=== PATIENT | female | born 1950 | race Caucasian/White ===

== ENCOUNTER → 2016-05-15 | Outpatient (CLI) | payer MEDICARE, OTHER ==
[~2016-05-15] MED LIST: REGADENOSON 0.4 MG/5 ML SYRINGE ONE
== END | disposition home or self-care (01) ==
LOC: CFH 07:29
PROVIDERS: ATTEND Internal Medicine Cardiovascular Disease
DX: Z01.810 Encounter for preprocedural cardiovascular examination (principal); R06.02 Shortness of breath; I10 Essential (primary) hypertension; E11.9 Type 2 diabetes mellitus without complications
CPT/HCPCS: 78452; 93017; 93306; A9502; J2785

== ENCOUNTER 2016-07-15 15:13 | Emergency (ER) | payer MEDICARE, OTHER ==
[~2016-07-15] VITALS: Ht 160 cm; Wt 110.0 kg
[2016-07-15] MEDS ORDERED: LINA1TAB PO (16:04)
[2016-07-15] MEDS ORDERED: METO50TA82 PO (16:04)
[2016-07-15] MEDS ORDERED: SERT100T5 PO (16:04)
[2016-07-15] MEDS ORDERED: GLIM1TAB2 PO (16:04)
[2016-07-15] MEDS ORDERED: ATOR20TA PO (16:04)
[2016-07-15] MEDS ORDERED: SPIR25TA3 PO (16:04)
[2016-07-15] MEDS ORDERED: LISI5TAB7 PO (16:04)
[2016-07-15] MEDS ORDERED: PILO5TAB PO (16:04)
[2016-07-15 16:49] LABS: ASPARTATE AMINO TRANSFERASE 16 U/L (15-37); BLOOD UREA NITROGEN 14 mg/dL (7-18)
[2016-07-15 17:31] VITALS: BP 109/59
== END 2016-07-15 17:34 | disposition home or self-care (01) ==
LOC: ED 17:25
DX: I80.8 Phlebitis and thrombophlebitis of other sites (principal); I10 Essential (primary) hypertension; E11.9 Type 2 diabetes mellitus without complications; E66.9 Obesity, unspecified
CPT/HCPCS: 36415; 80053; 85025; 85610; 85730

== ENCOUNTER 2016-10-27 14:49 | Inpatient (IN) | payer MEDICARE ==
[~2016-10-27] VITALS: Ht 160 cm; Wt 109.2 kg
[~2016-10-27 14:49] MED LIST changes: +ATOR20TA PO; +GLIM1TAB2 PO; +LINA1TAB PO; +LISI5TAB7 PO; +METO50TA82 PO; +PILO5TAB PO; -REGADENOSON 0.4 MG/5 ML SYRINGE ONE; +SERT100T5 PO; +SPIR25TA3 PO
[2016-10-27 15:26] LABS: HEMATOCRIT 43.9 % (34.6-47.8); HEMOGLOBIN 14.1 g/dL (11.7-16.4); WHITE BLOOD COUNT 11.6 x10^3/uL (3.4-10)
[2016-10-27] MEDS ORDERED: ONDANSETRON 2MG/ML, 2ML ONE (15:26)
[2016-10-27] MEDS ORDERED: FENTANYL PF 100 MCG/2ML ONE (15:26)
[2016-10-27] MEDS ORDERED: FENTANYL PF 100 MCG/2ML IVPush PRN (15:30)
[2016-10-27] MEDS ORDERED: SODIUM CHLORIDE 0.9% 1,000ML IVBOLUS ONE (15:30)
[2016-10-27] MEDS ORDERED: ONDANSETRON 2MG/ML, 2ML IVPush ONE (15:30)
[2016-10-27] MEDS ORDERED: SODIUM CHLORIDE FLUSH 10ML SYR IVF ONE (15:30)
[2016-10-27 15:38] LABS: ASPARTATE AMINO TRANSFERASE 19 U/L (15-37); BLOOD UREA NITROGEN 17 mg/dL (7-18)
[2016-10-27] MEDS ORDERED: TRAZ50TA18 PO (15:43)
[2016-10-27 15:46] LABS: IS PT STATUS REG ER OR PRE ER? YES
[2016-10-27] MEDS ORDERED: OMNIPAQUE 350 MG/ML, 100ML BOTTLE ONE (16:10)
[2016-10-27] MEDS ORDERED: HEPARIN 25,000 UNITS/500ML PMX 500 ML IV PRN (16:30)
[2016-10-27] MEDS ORDERED: HEPARIN 5,000 UNITS/ML, 1ML IV ONE (16:30)
[2016-10-27] MEDS ORDERED: HEPARIN 5,000 UNITS/ML, 1ML IV PRN (16:30)
[2016-10-27] MEDS ORDERED: HEPARIN 5,000 UNITS/ML, 1ML ONE (16:54)
[2016-10-27] MEDS ORDERED: HEPARIN 25,000 UNITS/500ML PMX 500 ML ONE (16:54)
[2016-10-27] MEDS ORDERED: LORazepam 2 MG/ML, 1ML IVPush PRN (17:00)
[2016-10-27] MEDS ORDERED: POLYETHYLENE GLYCOL 17 GM PACKET PO PRN (17:00)
[2016-10-27 17:26] LABS: ABG COLLECTION SITE RIGHT BRACHIAL
[2016-10-27 19:26] VITALS: BP 93/64
[2016-10-27] MEDS: SODIUM CHLORIDE 0.9% 1,000 ML IV SCH ×2 (19:42→23:58)
[2016-10-27 20:36] LABS: IS PT STATUS REG ER OR PRE ER? NO
[2016-10-27] MEDS ORDERED: TEMPLATE NON-FORMULARY MED. (Pilocarpine Hcl** 5 MG) PO SCH (21:00)
[2016-10-27] MEDS: morphine SULFATE 10 MG/ML, 1ML IVPush PRN (21:07)
[2016-10-27] MEDS: TRAZODONE 50MG TABLET PO SCH (21:14)
[2016-10-27] MEDS: INSULIN ASPART 100 UNITS/ML, PEN SQ-INSULIN SCH (21:15)
[2016-10-28 04:00] VITALS: BP 103/53
[2016-10-28] MEDS: INSULIN ASPART 100 UNITS/ML, PEN SQ-INSULIN SCH ×4 (08:15→22:01)
[2016-10-28 08:16] LABS: ASPARTATE AMINO TRANSFERASE 20 U/L (15-37); BLOOD UREA NITROGEN 20 mg/dL (7-18); HEMATOCRIT 41.1 % (34.6-47.8); HEMOGLOBIN 12.9 g/dL (11.7-16.4); WHITE BLOOD COUNT 11.3 x10^3/uL (3.4-10)
[2016-10-28] MEDS: morphine SULFATE 10 MG/ML, 1ML IVPush PRN ×2 (09:33→19:39)
[2016-10-28 09:40] LABS: IS PT STATUS REG ER OR PRE ER? NO
[2016-10-28] MEDS ORDERED: DIPH25CA61 PO (10:14)
[2016-10-28] MEDS ORDERED: GLIM4TAB2 PO (10:19)
[2016-10-28] MEDS ORDERED: CHOL100012 PO (10:24)
[2016-10-28] MEDS ORDERED: CYAN1TAB29 PO (10:24)
[2016-10-28] MEDS ORDERED: ASCO500T8 PO (10:24)
[2016-10-28] MEDS ORDERED: ASPI-496 PO (10:24)
[2016-10-28] MEDS ORDERED: OMEG-120 PO (10:24)
[2016-10-28] MEDS: ATORVASTATIN 20 MG TABLET PO SCH (10:43)
[2016-10-28] MEDS: SERTRALINE 100MG TABLET PO SCH (10:43)
[2016-10-28] MEDS: SENNA/DOCUSATE TABLET PO SCH (10:43)
[2016-10-28] MEDS: PILOCARPINE HCL 5 MG PO SCH ×3 (10:44→22:02)
[2016-10-28] MEDS ORDERED: HEPARIN 5,000 UNITS/ML, 1ML IV PRN (11:02)
[2016-10-28] MEDS ORDERED: HEPARIN 25,000 UNITS/500ML PMX 500 ML IV PRN (11:30)
[2016-10-28] MEDS: OXYcodone IR 5MG TABLET PO PRN ×3 (12:16→21:57)
[2016-10-28] MEDS: SODIUM CHLORIDE 0.9% 1,000 ML IV SCH (17:39)
[2016-10-28] MEDS: TRAZODONE 50MG TABLET PO SCH (20:38)
[2016-10-28] MEDS: APIXABAN 5 MG TABLET PO SCH (20:38)
[2016-10-29] MEDS: OXYcodone IR 5MG TABLET PO PRN ×3 (02:59→14:55)
[2016-10-29] MEDS: SODIUM CHLORIDE 0.9% 1,000 ML IV SCH ×2 (03:02→14:56)
[2016-10-29 04:00] VITALS: BP 95/55
[2016-10-29] MEDS: morphine SULFATE 10 MG/ML, 1ML IVPush PRN ×2 (04:32→21:50)
[2016-10-29 04:38] LABS: HEMATOCRIT 38.9 % (34.6-47.8); HEMOGLOBIN 12.2 g/dL (11.7-16.4); WHITE BLOOD COUNT 13.1 x10^3/uL (3.4-10)
[2016-10-29 04:50] LABS: BLOOD UREA NITROGEN 23 mg/dL (7-18)
[2016-10-29 04:53] LABS: ASPARTATE AMINO TRANSFERASE 21 U/L (15-37)
[2016-10-29] MEDS: APIXABAN 5 MG TABLET PO SCH ×2 (08:18→21:49)
[2016-10-29] MEDS: PILOCARPINE HCL 5 MG PO SCH ×2 (08:19→21:51)
[2016-10-29] MEDS: SENNA/DOCUSATE TABLET PO SCH (08:19)
[2016-10-29] MEDS: SERTRALINE 100MG TABLET PO SCH (08:19)
[2016-10-29] MEDS: INSULIN ASPART 100 UNITS/ML, PEN SQ-INSULIN SCH ×4 (08:19→21:48)
[2016-10-29] MEDS: ATORVASTATIN 20 MG TABLET PO SCH (08:19)
[2016-10-29] MEDS ORDERED: CALCIUM CARBONATE 500 MG TAB.CHEW PO PRN (10:30)
[2016-10-29] MEDS: FAMOTIDINE 20 MG/2 ML IVPush SCH ×2 (14:55→21:49)
[2016-10-29] MEDS: ONDANSETRON 2MG/ML, 2ML IVPush PRN (20:11)
[2016-10-29] MEDS: TRAZODONE 50MG TABLET PO SCH (21:49)
[2016-10-30] MEDS: SODIUM CHLORIDE 0.9% 1,000 ML IV SCH ×3 (00:55→21:13)
[2016-10-30] MEDS: ACETAMINOPHEN 325 MG TABLET PO PRN (02:12)
[2016-10-30 04:25] VITALS: BP 116/60
[2016-10-30 04:39] LABS: HEMATOCRIT 36.7 % (34.6-47.8); HEMOGLOBIN 11.6 g/dL (11.7-16.4); WHITE BLOOD COUNT 10.1 x10^3/uL (3.4-10)
[2016-10-30 04:49] LABS: ASPARTATE AMINO TRANSFERASE 17 U/L (15-37); BLOOD UREA NITROGEN 19 mg/dL (7-18)
[2016-10-30] MEDS: INSULIN ASPART 100 UNITS/ML, PEN SQ-INSULIN SCH ×4 (06:23→21:12)
[2016-10-30] MEDS: OXYcodone IR 5MG TABLET PO PRN ×2 (06:23→21:06)
[2016-10-30] MEDS: FAMOTIDINE 20 MG/2 ML IVPush SCH ×2 (08:44→21:04)
[2016-10-30] MEDS: SENNA/DOCUSATE TABLET PO SCH (08:44)
[2016-10-30] MEDS: SERTRALINE 100MG TABLET PO SCH (08:44)
[2016-10-30] MEDS: APIXABAN 5 MG TABLET PO SCH ×2 (08:44→21:05)
[2016-10-30] MEDS: PILOCARPINE HCL 5 MG PO SCH ×2 (08:45→21:00)
[2016-10-30] MEDS: ATORVASTATIN 20 MG TABLET PO SCH (08:45)
[2016-10-30 10:04] LABS: ABG COLLECTION SITE RIGHT RADIAL; COLLATERAL CIRCULATION TESTING NORMAL; FIO2 98 %
[2016-10-30] MEDS: TRAZODONE 50MG TABLET PO SCH (21:05)
[2016-10-30] MEDS: ONDANSETRON 2MG/ML, 2ML IVPush PRN (21:05)
[2016-10-31] MEDS: ACETAMINOPHEN 325 MG TABLET PO PRN ×2 (01:59→13:38)
[2016-10-31] MEDS: SODIUM CHLORIDE 0.9% 1,000 ML IV SCH (07:00)
[2016-10-31] MEDS: OXYcodone IR 5MG TABLET PO PRN ×3 (08:20→21:18)
[2016-10-31] MEDS: SENNA/DOCUSATE TABLET PO SCH (08:20)
[2016-10-31] MEDS: APIXABAN 5 MG TABLET PO SCH ×2 (08:21→21:12)
[2016-10-31] MEDS: SERTRALINE 100MG TABLET PO SCH (08:21)
[2016-10-31] MEDS: PILOCARPINE HCL 5 MG PO SCH ×2 (08:21→21:00)
[2016-10-31] MEDS: FAMOTIDINE 20 MG/2 ML IVPush SCH ×2 (08:22→21:12)
[2016-10-31] MEDS: ATORVASTATIN 20 MG TABLET PO SCH (08:22)
[2016-10-31] MEDS: INSULIN ASPART 100 UNITS/ML, PEN SQ-INSULIN SCH ×4 (08:41→21:19)
[2016-10-31] MEDS ORDERED: FUROSEMIDE 40 MG/4 ML IV SCH (17:00)
[2016-10-31] MEDS ORDERED: FUROSEMIDE 40 MG/4 ML IV ONE (20:00)
[2016-10-31] MEDS: TRAZODONE 50MG TABLET PO SCH (21:10)
[2016-11-01 04:58] LABS: HEMATOCRIT 37.6 % (34.6-47.8); HEMOGLOBIN 12.1 g/dL (11.7-16.4); WHITE BLOOD COUNT 9.7 x10^3/uL (3.4-10)
[2016-11-01 05:09] LABS: BLOOD UREA NITROGEN 22 mg/dL (7-18)
[2016-11-01 05:13] LABS: ASPARTATE AMINO TRANSFERASE 14 U/L (15-37)
[2016-11-01] MEDS: INSULIN ASPART 100 UNITS/ML, PEN SQ-INSULIN SCH ×4 (08:30→21:32)
[2016-11-01] MEDS ORDERED: LACTULOSE 20 GM/30 ML UDC PO SCH (09:00)
[2016-11-01] MEDS: PILOCARPINE HCL 5 MG PO SCH ×2 (09:00→21:37)
[2016-11-01] MEDS: ATORVASTATIN 20 MG TABLET PO SCH (09:25)
[2016-11-01] MEDS: APIXABAN 5 MG TABLET PO SCH ×2 (09:25→21:31)
[2016-11-01] MEDS: FAMOTIDINE 20 MG/2 ML IVPush SCH ×2 (09:25→21:31)
[2016-11-01] MEDS: SERTRALINE 100MG TABLET PO SCH (09:25)
[2016-11-01] MEDS: SENNA/DOCUSATE TABLET PO SCH (09:25)
[2016-11-01] MEDS ORDERED: LACTULOSE 20 GM/30 ML UDC PO PRN ×2 (09:30→16:30)
[2016-11-01] MEDS ORDERED: FUROSEMIDE 40 MG/4 ML ONE (10:42)
[2016-11-01] MEDS ORDERED: FUROSEMIDE 40 MG/4 ML IV ONE ×3 (11:00→17:00)
[2016-11-01] MEDS ORDERED: LORazepam 2 MG/ML, 1ML IVPush PRN (16:30)
[2016-11-01] MEDS ORDERED: POLYETHYLENE GLYCOL 17 GM PACKET PO PRN (16:30)
[2016-11-01] MEDS ORDERED: ACETAMINOPHEN 325 MG TABLET PO PRN (16:30)
[2016-11-01] MEDS ORDERED: CALCIUM CARBONATE 500 MG TAB.CHEW PO PRN (16:30)
[2016-11-01] MEDS ORDERED: FUROSEMIDE 40 MG/4 ML IV SCH (17:00)
[2016-11-01] MEDS: TRAZODONE 50MG TABLET PO SCH (21:31)
[2016-11-02 04:32] VITALS: BP 121/86
[2016-11-02 05:57] LABS: HEMATOCRIT 38.6 % (34.6-47.8); HEMOGLOBIN 12.5 g/dL (11.7-16.4); WHITE BLOOD COUNT 8.2 x10^3/uL (3.4-10)
[2016-11-02 06:09] LABS: BLOOD UREA NITROGEN 19 mg/dL (7-18)
[2016-11-02] MEDS: INSULIN ASPART 100 UNITS/ML, PEN SQ-INSULIN SCH ×4 (06:41→20:30)
[2016-11-02] MEDS: POTASSIUM CHLORIDE 20 MEQ TAB.ER.PRT PO SCH ×2 (08:50→17:00)
[2016-11-02] MEDS: SERTRALINE 100MG TABLET PO SCH (08:51)
[2016-11-02] MEDS: SENNA/DOCUSATE TABLET PO SCH (08:51)
[2016-11-02] MEDS: FAMOTIDINE 20 MG/2 ML IVPush SCH ×2 (08:52→20:29)
[2016-11-02] MEDS: APIXABAN 5 MG TABLET PO SCH ×2 (08:52→20:29)
[2016-11-02] MEDS: ATORVASTATIN 20 MG TABLET PO SCH (08:53)
[2016-11-02] MEDS: PILOCARPINE HCL 5 MG PO SCH ×2 (08:53→21:00)
[2016-11-02 19:01] VITALS: BP 129/70
[2016-11-02] MEDS: TRAZODONE 50MG TABLET PO SCH (20:29)
[2016-11-03 01:21] VITALS: BP 124/79
[2016-11-03] MEDS: INSULIN ASPART 100 UNITS/ML, PEN SQ-INSULIN SCH ×4 (07:49→21:42)
[2016-11-03] MEDS: APIXABAN 5 MG TABLET PO SCH ×2 (07:51→21:23)
[2016-11-03] MEDS: PILOCARPINE HCL 5 MG PO SCH ×2 (07:51→21:23)
[2016-11-03] MEDS: ATORVASTATIN 20 MG TABLET PO SCH (07:51)
[2016-11-03] MEDS: SERTRALINE 100MG TABLET PO SCH (07:51)
[2016-11-03] MEDS: SENNA/DOCUSATE TABLET PO SCH (07:51)
[2016-11-03] MEDS: FAMOTIDINE 20 MG/2 ML IVPush SCH ×2 (07:51→21:23)
[2016-11-03 07:57] VITALS: BP 137/78
[2016-11-03 13:38] VITALS: BP 143/90
[2016-11-03 18:40] VITALS: BP 141/78
[2016-11-03] MEDS: TRAZODONE 50MG TABLET PO SCH (22:06)
[2016-11-04 02:04] VITALS: BP 133/78
[2016-11-04 05:13] LABS: BLOOD UREA NITROGEN 21 mg/dL (7-18)
[2016-11-04 06:30] VITALS: BP 115/77
[2016-11-04] MEDS: ATORVASTATIN 20 MG TABLET PO SCH (08:14)
[2016-11-04] MEDS: SERTRALINE 100MG TABLET PO SCH (08:14)
[2016-11-04] MEDS: INSULIN ASPART 100 UNITS/ML, PEN SQ-INSULIN SCH ×2 (08:14→11:00)
[2016-11-04] MEDS: FAMOTIDINE 20 MG/2 ML IVPush SCH (08:14)
[2016-11-04] MEDS: PILOCARPINE HCL 5 MG PO SCH (08:15)
[2016-11-04] MEDS: SENNA/DOCUSATE TABLET PO SCH (08:16)
[2016-11-04] MEDS: APIXABAN 5 MG TABLET PO SCH (08:21)
[2016-11-04] MEDS ORDERED: APIX5TAB PO (09:43)
[2016-11-04 10:28] VITALS: BP 120/70
== END 2016-11-04 12:01 | disposition home or self-care (01) | DRG 175 ==
LOC: ED 16:37 → CCU 16:42 → ED 18:22 → CCU 18:54 → 5SO 11-02 16:32 → 4NOR 11-03 18:09
PROVIDERS: ADMIT Internal Medicine; ATTEND Internal Medicine
PROC: 5A09357 Assistance with Respiratory Ventilation, Less than 24 Consecutive Hours, Continuous Positive Airway Pressure (ICD-10-PCS; principal; 2016-11-03)
DX: I26.92 Saddle embolus of pulmonary artery without acute cor pulmonale (principal); J96.20 Acute and chronic respiratory failure, unspecified whether with hypoxia or hypercapnia; N17.0 Acute kidney failure with tubular necrosis; E46 Unspecified protein-calorie malnutrition; D72.829 Elevated white blood cell count, unspecified; E11.9 Type 2 diabetes mellitus without complications; I10 Essential (primary) hypertension; Z68.41 Body mass index [BMI] 40.0-44.9, adult; I82.412 Acute embolism and thrombosis of left femoral vein; I82.439 Acute embolism and thrombosis of unspecified popliteal vein; R74.8 Abnormal levels of other serum enzymes; E66.01 Morbid (severe) obesity due to excess calories; E78.5 Hyperlipidemia, unspecified; F32.9 Major depressive disorder, single episode, unspecified; G47.33 Obstructive sleep apnea (adult) (pediatric); K59.00 Constipation, unspecified; Z82.49 Family history of ischemic heart disease and other diseases of the circulatory system; Z87.891 Personal history of nicotine dependence; Z99.81 Dependence on supplemental oxygen; I51.89 Other ill-defined heart diseases
CPT/HCPCS: 36415; 36600; 71010; 71275; 80048; 80053; 82803; 82962; 83735; 83880; 84132; 84484; 85025; 85520; 85610; 85730; 87081; 93005; 93306; 96374; 96375; J1644; J1815; J1940; J2405; J3010; Q9967; J2270; J7030; S0028

== ENCOUNTER → 2017-05-07 | Outpatient (CLI) | payer MEDICARE ==
[~2017-05-07] MED LIST changes: +APIX5TAB PO; +ASCO500T8 PO; +ASPI-496 PO; +CHOL100012 PO; +CYAN1TAB29 PO; +DIPH25CA61 PO; +GLIM4TAB2 PO; +OMEG-120 PO; +TRAZ50TA18 PO
== END | disposition home or self-care (01) ==
LOC: CVU 09:14
PROVIDERS: ATTEND Internal Medicine Cardiovascular Disease
DX: Z01.810 Encounter for preprocedural cardiovascular examination (principal); I10 Essential (primary) hypertension; I51.7 Cardiomegaly; Z86.711 Personal history of pulmonary embolism
CPT/HCPCS: 93306

== ENCOUNTER 2017-09-13 12:10 | Emergency (ER) | payer MEDICARE ==
[~2017-09-13] VITALS: Ht 160 cm; Wt 97.9 kg
[2017-09-13 12:18] VITALS: BP 114/69
[2017-09-13] MEDS ORDERED: RIVA20TA PO (12:53)
[2017-09-13] MEDS ORDERED: EXEN2VIA INJ (12:54)
[2017-09-13 13:07] LABS: BASOPHILS # (AUTO) 0.03 x10^3/uL (0-0.1); BASOPHILS % (AUTO) 0 % (0-1); EOSINOPHILS # (AUTO) 0.27 x10^3/uL (0-0.4); EOSINOPHILS % (AUTO) 3 % (1-7); LYMPHOCYTES % (AUTO) 22 % (22-44); MD NO; MEAN CORPUSCULAR HEMOGLOBIN 30.9 pg (27.0-34.8); MEAN CORPUSCULAR HGB CONC 32.8 g/dL (32.4-35.8); MEAN CORPUSCULAR VOLUME 94.3 fL (80-100); MEAN PLATELET VOLUME 9.9 fL (7.4-10.4); MONOCYTES # (AUTO) 0.35 x10^3/uL (0.2-0.8); MONOCYTES % (AUTO) 4 % (2-9); NEUTROPHILS # (AUTO) 6.96 x10^3/uL (1.8-6.8); NEUTROPHILS % (AUTO) 72 % (42-75); PLATELET COUNT 203 x10^3/uL (130-400); RED BLOOD COUNT 4.29 x10^6/uL (3.82-5.3)
[2017-09-13 13:18] LABS: INTERNATIONAL NORMALIZED RATIO 1.01 (0.93-1.1); PROTHROMBIN TIME 10.5 Seconds (9.6-11.5)
[2017-09-13 13:19] LABS: ALBUMIN 3.1 g/dL (3.4-5.0); ANION GAP 8 mmol/L (5-15); CALCIUM 9.4 mg/dL (8.5-10.1); CHLORIDE 110 mmol/L (98-107)
[2017-09-13 13:21] LABS: CREATININE 1.23 mg/dL (0.55-1.02)
== END 2017-09-13 14:00 | disposition home or self-care (01) ==
LOC: ED 13:53
DX: R21 Rash and other nonspecific skin eruption (principal); J96.90 Respiratory failure, unspecified, unspecified whether with hypoxia or hypercapnia; E11.9 Type 2 diabetes mellitus without complications; I10 Essential (primary) hypertension; R79.1 Abnormal coagulation profile
CPT/HCPCS: 36415; 80048; 82040; 85025; 85610; 85730; 99284

== ENCOUNTER → 2017-11-26 | Outpatient (CLI) | payer MEDICARE ==
[~2017-11-26] MED LIST changes: +CICL34.6 TP; +CYCL5TAB PO; +EXEN2VIA INJ; +GLIM2TAB2 PO; +LOVENOX SC; +POTASSIUM PO; +RIVA20TA PO; +SOLI5TAB2 PO; -SPIR25TA3 PO; +SPIR25TA5 PO; +TRAZ-136 PO; -TRAZ50TA18 PO
[2017-11-26 10:47] LABS: % IRON SATURATION 26 % (20-55); IRON LEVEL 80 mcg/dL (50-170); TOTAL IRON BINDING CAPACITY 305 mcg/dL (250-450)
[2017-11-26 11:01] LABS: PREALBUMIN 32.9 mg/dL (20.0-40.0); TRANSFERRIN 249 mg/dL (200-360)
[2017-11-26 11:04] LABS: FOLATE LEVEL > 20.0 ng/mL (3.1-17.5)
== END | disposition home or self-care (01) ==
LOC: STAR 08:52
PROVIDERS: ATTEND Surgery
DX: Z01.818 Encounter for other preprocedural examination (principal); J44.9 Chronic obstructive pulmonary disease, unspecified; E11.9 Type 2 diabetes mellitus without complications
CPT/HCPCS: 36415; 71046; 82306; 82728; 82746; 83540; 83550; 83970; 84134; 84425; 84466; 93005

== ENCOUNTER 2018-12-25 10:52 | Emergency (ER) | payer MEDICARE ==
[~2018-12-25] VITALS: Ht 160 cm; Wt 97.8 kg
[~2018-12-25 10:52] MED LIST changes: +SERT100T32 PO; -SERT100T5 PO; -TRAZ-136 PO; +TRAZ50TA66 PO
[2018-12-25 11:28] VITALS: BP 115/72
[2018-12-25] MEDS ORDERED: KETOROLAC 30 MG/1 ML IM ONE (11:30)
[2018-12-25 12:06] LABS: BASOPHILS # (AUTO) 0.13 x10^3/uL (0-0.1); BASOPHILS % (AUTO) 2 % (0-1); EOSINOPHILS # (AUTO) 0.22 x10^3/uL (0-0.4); EOSINOPHILS % (AUTO) 3 % (1-7); LYMPHOCYTES # (AUTO) 2.04 x10^3/uL (1-3.4); LYMPHOCYTES % (AUTO) 23 % (22-44); MD NO; MEAN CORPUSCULAR HEMOGLOBIN 31.1 pg (27.0-34.8); MEAN CORPUSCULAR HGB CONC 32.4 g/dL (32.4-35.8); MEAN CORPUSCULAR VOLUME 96.2 fL (80-100); MEAN PLATELET VOLUME 9.9 fL (7.4-10.4); MONOCYTES # (AUTO) 0.43 x10^3/uL (0.2-0.8); MONOCYTES % (AUTO) 5 % (2-9); NEUTROPHILS # (AUTO) 5.95 x10^3/uL (1.8-6.8); NEUTROPHILS % (AUTO) 68 % (42-75); PLATELET COUNT 173 x10^3/uL (130-400); RED BLOOD COUNT 4.37 x10^6/uL (3.82-5.3); RED CELL DISTRIBUTION WIDTH 14.6 % (9.6-15.2)
[2018-12-25 12:12] LABS: ALBUMIN 3.2 g/dL (3.4-5.0); ANION GAP 3 mmol/L (5-15); CALCIUM 9.3 mg/dL (8.5-10.1); CHLORIDE 109 mmol/L (98-107); CREATININE 1.13 mg/dL (0.55-1.02)
[2018-12-25 13:03] LABS: CULTURE INDICATED? YES; MICROSCOPIC AUTO
[2018-12-25] MEDS ORDERED: KETOROLAC 30 MG/1 ML ONE (13:38)
== END 2018-12-25 14:03 | disposition home or self-care (01) ==
LOC: ED 11:31
DX: M54.32 Sciatica, left side (principal); M54.5 Low back pain; N30.00 Acute cystitis without hematuria; E11.9 Type 2 diabetes mellitus without complications; I10 Essential (primary) hypertension; F32.9 Major depressive disorder, single episode, unspecified
CPT/HCPCS: 36415; 72110; 73630; 80048; 81001; 82040; 85025; 87077; 87086; 87186; 96372; 99284; J1885

== ENCOUNTER → 2020-05-24 | Outpatient (CLI) | payer MEDICARE ==
[~2020-05-24] MED LIST changes: +ALBU18HF PO; +AZIT250T89 PO; -GLIM1TAB2 PO; +GLIM1TAB7 PO; -GLIM2TAB2 PO; +GLIM2TAB7 PO; -GLIM4TAB2 PO; +GLIM4TAB8 PO; +PRED20TA PO
== END | disposition home or self-care (01) ==
LOC: RAD 11:21
PROVIDERS: ATTEND Clinical Nurse Specialist
DX: Z09 Encounter for follow-up examination after completed treatment for conditions other than malignant neoplasm (principal); E66.01 Morbid (severe) obesity due to excess calories; K22.8 Other specified diseases of esophagus
CPT/HCPCS: 74240